=== PATIENT | female | born 1940 | race African-American/Black ===

== ENCOUNTER 2017-02-12 18:59 | Emergency (ER) | payer OTHER ==
[~2017-02-12] VITALS: Ht 167.6 cm; Wt 68.0 kg
--- NOTE | 2017-02-12 20:04 | RAD ---
RS Compliance Statement: One or more of the following individualized dose reduction techniques were utilized for this examination: 1. Automated exposure control 2. Adjustment of the mA and/or kV according to patient size 3. Use of iterative reconstruction technique CT head without contrast 02/12/2017 7:32 PM INDICATION: Altered mental status COMPARISON: None available TECHNIQUE: Multiple axial CT images of the head were obtained from skull base through the vertex without intravenous contrast. FINDINGS: Head: Ventricles, sulci and basal cisterns are within normal limits. There is cavum septum pellucidum et vergae. There is no hydrocephalus. Low-attenuation in the periventricular white matter is compatible with chronic small vessel ischemic changes. Remote ischemic changes are noted in the right frontal lobe. Escamilla-white matter differentiation is normal. There is no acute intracranial hemorrhage. There is no mass, mass effect or midline shift. Posterior fossa is normal in appearance. Visualized portions of the orbits are normal. Paranasal sinuses are well aerated. Mastoid air cells are well aerated. Scalp and calvaria are normal. IMPRESSION: No acute intracranial hemorrhage. Low attenuation the periventricular white matter is compatible with chronic small vessel ischemic changes. Remote ischemic changes noted in the right frontal lobe. Electronically signed by: Socorro Mcnamara MD (02/12/2017 8:01 PM) [facility]
--- NOTE | 2017-02-12 20:26 | RAD ---
Indication: Abdominal bloating and constipation for 2 weeks. Mental status change. Technique: Axial images and coronal and sagittal reformatted images are provided. No comparison is available. One or more of the following individualized dose reduction techniques were utilized for this examination: 1. Automated exposure control 2. Adjustment of the mA and/or kV according to patient size 3. Use of iterative reconstruction technique Findings: There is atelectasis or scarring in the lung bases. There are 4 mm pulmonary nodules in the right middle lobe and in the lingula. There is emphysema. There is no pleural effusion. The heart is not enlarged. Coronary artery calcifications are noted. There appears to have been right mastectomy. Solid organ evaluation is limited without contrast. Low-density lesion within the right hepatic lobe measures 3 cm, statistically most likely a cyst. Gallbladder is contracted. Spleen is not enlarged. Pancreas and adrenals are unremarkable. There is no urolithiasis. There is atheromatous disease in the abdominal aorta without aneurysm. Lack of IV or oral contrast limits evaluation of bowel. There is no small bowel obstruction. There are surgical changes of bowel anastomosis at at least 2 sites. There are abnormal bowel loops adjacent to the abdominal wall, may be tethered. These loops do not appear dilated or thickened. There is an apparent fluid collection in the abdominal wall at this site measuring 7 x 3 x 5 cm. Evaluation of this area is limited without IV or oral contrast. There is a potential tract to the skin although ER physician states no drainage at this site or ostomy at this site. There are diverticula in the colon. There are no findings of a diverticulitis. Normal appendix is noted. There is no bladder calculus. Uterus is presumed absent surgically. There is no adnexal mass. There are degenerative changes in the spine. IMPRESSION: 1. Fluid collection along the abdominal wall near the umbilicus up to 7 x 3 x 5 cm. This could represent seroma, sterility cannot be confirmed. Please correlate with procedural history and any previous imaging. 2. Adjacent bowel loops may be tethered but there is no associated obstruction. There is evidence of prior bowel resections. 3. Diverticulosis in the colon without findings of diverticulitis. 4. Pulmonary nodules. Per Fleischner Society, in a low-risk patient, no further workup is required, 12 month follow-up can be considered in a high-risk patient. 5. Emphysema. Electronically signed by: Arya Taylor MD (02/12/2017 8:22 PM) [facility]
[2017-02-12 20:27] LABS: BILIRUBIN,URINE NEGATIVE (NEG); GLUCOSE,URINE NEGATIVE (NEG); NITRITE,URINE NEGATIVE (NEG); PROTEIN,URINE NEGATIVE (NEG-TRACE); UROBILINOGEN,URINE 0.2 mg/dL (0.2 mg/dL)
[2017-02-12 20:33] LABS: BARBITURATES NEG (NEG); BENZODIAZEPINES NEG (NEG); CANNABINOIDS NEG (NEG); COCAINE NEG (NEG); METHADONE NEG (NEG); OPIATES NEG (NEG); PHENCYCLIDINE NEG (NEG)
[2017-02-12 20:38] LABS: BACTERIA,URINE 0 /HPF (0-FEW); RBC,URINE 0 /HPF (0-2); WBC,URINE 0 /HPF (0-4)
[2017-02-12 20:39] LABS: BASO # 0.1 x10^3/uL (0.0-0.2); BASO % 1 % (0-3); EOS % 2 % (0-3); HEMATOCRIT 38.8 % (36.0-47.0); HEMOGLOBIN 12.5 g/dL (12.0-15.5); LYMPH # 2.4 x10^3/uL (1.0-4.8); LYMPH % 28 % (24-48); MEAN CORPUSCULAR HEMOGLOBIN 29 pg (25-35); MEAN CORPUSCULAR HGB CONC 32 g/dL (31-37); MEAN CORPUSCULAR VOLUME 88 fL (79-100); MONO % 11 % (0-9); NEUT % 58 % (31-73); PLATELET COUNT 443 x10^3/uL (140-400); RED BLOOD COUNT 4.39 x10^6/uL (3.50-5.40); RED CELL DISTRIBUTION WIDTH 14.4 % (11.5-14.5); WHITE BLOOD COUNT 8.5 x10^3/uL (4.0-11.0)
[2017-02-12 20:49] LABS: CALCIUM 10.2 mg/dL (8.5-10.1); GFR 65.1; POTASSIUM 4.7 mmol/L (3.5-5.1)
[2017-02-12 20:55] LABS: ALBUMIN 3.3 g/dL (3.4-5.0); ALBUMIN/GLOBULIN RATIO 0.7 (1.0-1.7); TOTAL BILIRUBIN 0.3 mg/dL (0.2-1.0); TOTAL PROTEIN 8.3 g/dL (6.4-8.2)
[2017-02-12 21:41] VITALS: BP 167/82
[2017-02-12] MEDS ORDERED: POLY17PO29 PO (21:44)
--- NOTE | 2017-02-12 21:44 | PHYS DOC ---
Past Medical History Past Medical History: Anxiety, Cancer, Hypertension Past Surgical History: Other Additional Past Surgical Histo: right mastectomy Alcohol Use: None Drug Use: None Adult General Chief Complaint Chief Complaint: CONSTIPATION HPI HPI Patient is a 76 year old female with a history significant for hypertension presents to the ER today secondary to constipation. Patient is an extremely poor historian so history is obtained from the patient's mother. Patient apparently has a history of progressing dementia over the last several months and is currently being evaluated by her primary care physician. Patient does have an appointment tomorrow with a neurologist to evaluate her poor memory and her dementia. Apparently yesterday she was found wandering around and was brought home by police because she was wandering the streets. Her brother was notified and he has taken her and he will be taking care of her until her son, who is her [employer]ABLE [employer], comes from [place] to take her back home with him to care for her. Patient does not live in a skilled nursing currently prior to being taken in by her brother, was living alone and caring for herself. Patient has a history of hypertension. No diabetes liver longer kidney problems. Patient has no history of strokes or MIs. Patient has had abdominal surgery but is she is not sure what it was from. Patient reports she used to smoke but has not smoked for over 20 years. Patient denies any alcohol use. Patient is unclear of any allergies. Patient reports that her main issue today is no bowel movement for approximately 2 days. Patient denies any fevers shakes chills nausea vomiting diarrhea chest pain shortness of breath cough cold or rhinorrhea. Patient denies any dysuria frequency or urgency. Patient reports she's been eating and drinking well. I have talked to the brother and he reports that her mental status is at her baseline and that They're currently working her up for her dementia.Review of systems Constitutional: Denies fever or chills Eyes: Denies change in visual acuity, redness, or eye pain All other review systems are negative except as documented in the history of present illness portion. Physical exam Constitutional: Well developed, well nourished, no acute distress, non-toxic appearance. HENT: Normocephalic, atraumatic, bilateral external ears normal, oropharynx moist, no oral exudates, nose normal. Eyes: conjunctiva normal, no discharge. Neck: Normal range of motion, no tenderness, supple, no stridor. Cardiovascular:Heart rate regular rhythm, Lungs & Thorax: Bilateral breath sounds clear to auscultation Abdomen: Bowel sounds normal, soft, no tenderness, no masses, no pulsatile masses. Skin: Warm, dry, Back: No tenderness, Extremities: No tenderness, no cyanosis, Neurologic: Alert and oriented to person place but not year. Patient appears to get easily frustrated secondary to memory loss. Normal motor function, normal sensory function, no focal deficits noted. Psychologic: Affect normal, judgement normal, mood normal. Assessment and plan: This is a 76-year-old female who presents to the ER today secondary to constipation. I had a long discussion with the patient's brother reports that he does not wish for us to further evaluate her and mentioned that she has a appointment with a specialist tomorrow. He reports that he does not want us to evaluate her altered mental status and does not think that she needs to be admitted for this and he feels very comfortable taking her home. He does not want us to assist with skilled nursing placement as her son is driving here from [place] to take her home with him and care for her [place] in his home. Patient's workup in ER has been unremarkable. Patient has had an unremarkable CT of the head and abdomen. Patient does not have clear evidence of constipation. Patient be started on MiraLAX to assist her with her constipation will be instructed to follow-up with primary care physician for further evaluation of her symptoms. Patient's clinically and hemodynamically stable at this time for outpatient evaluation. Patient normal CBC, CMP, UA, CT of the abdomen and head. Allergies Allergies Allergies Coded Allergies Type Severity Reaction Last Updated Verified No Known Drug Allergies 02/12/17 No Current Patient Data Vital Signs Vital Signs Date Time Temp Pulse Resp B/P (MAP) Pulse Ox O2 Delivery O2 Flow Rate FiO2 02/12/17 21:11 68 22 166/84 (111) 95 Room Air 02/12/17 19:14 98.1 98.1 Lab Values Laboratory Tests Test 02/12/17 20:15 02/12/17 20:22 Urine Collection Type Unknown Urine Color Yellow Urine Clarity Clear Urine pH 7.0 Urine Specific Hiram <=1.005 Urine Protein Negative mg/dL (NEG-TRACE) Urine Glucose (UA) Negative mg/dL (NEG) Urine Ketones (Stick) Negative mg/dL (NEG) Urine Blood Negative (NEG) Urine Nitrite Negative (NEG) Urine Bilirubin Negative (NEG) Urine Urobilinogen Dipstick 0.2 mg/dL (0.2 mg/dL) Urine Leukocyte Esterase Negative (NEG) Urine RBC 0 /HPF (0-2) Urine WBC 0 /HPF (0-4) Urine Squamous Epithelial Cells None /LPF Urine Bacteria 0 /HPF (0-FEW) Urine Opiates Screen Neg (NEG) Urine Methadone Screen Neg (NEG) Urine Barbiturates Neg (NEG) Urine Phencyclidine Screen Neg (NEG) Urine Amphetamine/Methamphetamine Neg (NEG) Urine Benzodiazepines Screen Neg (NEG) Urine Cocaine Screen Neg (NEG) Urine Cannabinoids Screen Neg (NEG) Urine Ethyl Alcohol Neg (NEG) White Blood Count 8.5 x10^3/uL (4.0-11.0) Red Blood Count 4.39 x10^6/uL (3.50-5.40) Hemoglobin 12.5 g/dL (12.0-15.5) Hematocrit 38.8 % (36.0-47.0) Mean Corpuscular Volume 88 fL (79-100) Mean Corpuscular Hemoglobin 29 pg (25-35) Mean Corpuscular Hemoglobin Concent 32 g/dL (31-37) Red Cell Distribution Width 14.4 % (11.5-14.5) Platelet Count 443 x10^3/uL (140-400) H Neutrophils (%) (Auto) 58 % (31-73) Lymphocytes (%) (Auto) 28 % (24-48) Monocytes (%) (Auto) 11 % (0-9) H Eosinophils (%) (Auto) 2 % (0-3) Basophils (%) (Auto) 1 % (0-3) Neutrophils # (Auto) 4.9 x10^3uL (1.8-7.7) Lymphocytes # (Auto) 2.4 x10^3/uL (1.0-4.8) Monocytes # (Auto) 0.9 x10^3/uL (0.0-1.1) Eosinophils # (Auto) 0.2 x10^3/uL (0.0-0.7) Basophils # (Auto) 0.1 x10^3/uL (0.0-0.2) Sodium Level 141 mmol/L (136-145) Potassium Level 4.7 mmol/L (3.5-5.1) Chloride Level 104 mmol/L (98-107) Carbon Dioxide Level 29 mmol/L (21-32) Anion Gap 8 (6-14) Blood Urea Nitrogen 14 mg/dL (7-20) Creatinine 1.0 mg/dL (0.6-1.0) Estimated GFR (Cockcroft-Gault) 65.1 BUN/Creatinine Ratio 14 (6-20) Glucose Level 130 mg/dL (70-99) H Calcium Level 10.2 mg/dL (8.5-10.1) H Total Bilirubin 0.3 mg/dL (0.2-1.0) Aspartate Amino Transferase (AST) 26 U/L (15-37) Alanine Aminotransferase (ALT) 19 U/L (14-59) Alkaline Phosphatase 106 U/L (46-116) Total Protein 8.3 g/dL (6.4-8.2) H Albumin 3.3 g/dL (3.4-5.0) L Albumin/Globulin Ratio 0.7 (1.0-1.7) L Laboratory Tests 02/12/17 20:22 Laboratory Tests 02/12/17 20:22 EKG EKG [] Radiology/Procedures Radiology/Procedures [] Course & Med Decision Making Course & Med Decision Making Pertinent Labs and Imaging studies reviewed. (See chart for details) [] Dragon Disclaimer Dragon Disclaimer This electronic medical record was generated, in whole or in part, using a voice recognition dictation system. Departure Departure Impression: Primary Impression: Constipation Additional Impression: Dementia Disposition: 01 HOME, SELF-CARE Condition: STABLE Referrals: TINY BAUTISTA MD (PCP) Patient Instructions: Constipation, Adult, Dementia Scripts Polyethylene Glycol 3350 (MIRALAX) 17 Gm Powd.pack 1 PACKET PO DAILY, #30 PACKET 3 Refills Prov: ARMOND DUMONT MD 02/12/17 Problem Qualifiers ARMOND DUMONT MD Feb 12, 2017 21:44
--- NOTE | 2017-02-13 07:19 | EKG ---
[facility] [address] [place] [address] Test Date: 2017-02-12 Test Time: 19:22:23 Pat Name: GUSTAVO SHAFFER Department: Room: Gender: F [employer]: : 1940 Requested By: ARMOND DUMONT Order Number: [id number] Reading MD: Measurements Intervals [place] Rate: 69 P: 45 DC: 188 QRS: 56 QRSD: 84 T: 22 QT: 392 QTc: 422 Interpretive Statements SINUS RHYTHM LOW LIMB LEAD VOLTAGE RI6.01 Unconfirmed report No previous ECG available for comparison
== END 2017-02-12 22:11 | disposition home or self-care (01) ==
LOC: ER 18:59
DX: K59.00 Constipation, unspecified (principal); F03.90 Unspecified dementia, unspecified severity, without behavioral disturbance, psychotic disturbance, mood disturbance, and anxiety; I10 Essential (primary) hypertension; Z87.891 Personal history of nicotine dependence
CPT/HCPCS: 36415; 70450; 74176; 80053; 80307; 81001; 85025; 93005; 99285-25; G0479